=== PATIENT | female | born 1950 | race Caucasian/White ===

== ENCOUNTER → 2016-08-18 | Outpatient (CLI) | payer BC ==
[~2016-08-18] MED LIST: BIOT1CAP8 PO; CALC-354 PO; CHOL100010 PO; COEN100C7 PO; DICY10CA12 PO; FLUT0.15 NAE; GEMF600T PO; GLC/500 PO; LANS30CA12 PO; MELO15TA4 PO; MONT1TAB3 PO; PROB1TAB16 PO; ZNTT/150 PO
--- NOTE | 2016-08-19 12:47 | MAMMOGRAPHY REPORT ---
BILATERAL DIGITAL SCREENING MAMMOGRAM TOMOSYNTHESIS WITH CAD: 08/18/2016 CLINICAL HISTORY: Routine screening. Patient has no complaints. TECHNIQUE: Breast tomosynthesis in addition to standard 2D mammography was performed. Current study was also evaluated with a Computer Aided Detection (CAD) system. COMPARISON: Comparison is made to exams dated: 11/14/2014 mammogram, 07/04/2015 mammogram, 4 mammogram, 04/24/2014 mammogram, and 06/16/2011 mammogram - [facility]. BREAST COMPOSITION: The tissue of both breasts is extremely dense, which lowers the sensitivity of mammography. FINDINGS: There is stable nodularity in the right upper outer quadrant. Scattered benign calcificat ions and round and punctate benign-appearing microcalcifications. No new suspicious mass, implementation architect ural distortion or cluster of microcalcifications is seen. IMPRESSION: ACR BI-RADS CATEGORY 1: NEGATIVE There is no mammographic evidence of malignancy. A 1 year screening mammogram is recommended. The p atient will receive written notification of the results. Approximately 10% of breast cancers are not detected with mammography. A negative mammographic repor t should not delay biopsy if a clinically suggestive mass is present. Kylee Carvalho M.D. ay/:08/18/2016 16:42:33 Asset Coordinator: Modesta Mota, [facility] letter sent: Normal 1/2 BI-RADS Code: ACR BI-RADS Category 1: Negative
== END | disposition home or self-care (01) ==
LOC: C.MAMM 08:23
PROVIDERS: ATTEND Obstetrics & Gynecology
DX: Z12.31 Encounter for screening mammogram for malignant neoplasm of breast (principal)

== ENCOUNTER → 2016-10-21 | Day surgery (SDC) | payer BC ==
[2016-10-13 13:35] VITALS: Ht 162.6 cm; Wt 79.1 kg
[~2016-10-21] VITALS: Ht 162.6 cm; Wt 79.1 kg
[~2016-10-21] MED LIST changes: +LIDOCAINE HCL 2% 2 ML VIAL (20MG/ML) ONE; +ONDANSETRON INJ 2 MG/ML 2 ML VIAL ONE; +PROPOFOL IV EMULSION 10 MG/ML 20 ML VIAL IV ONE; +SODIUM CHLORIDE 0.9% 500ML 500 ML IV ONE
--- NOTE | 2016-10-21 11:19 | Endo History and Physical ---
History & Physical Date of Service: Oct 21, 2016. Chief Complaint: ileum ulcer Referring Physician: Dr. Samir Monahan History of Present Illness 65 yo CF who presents for colonoscopy secondary to ulcer of ileum. Past Surgical History Hx Cardiac Surgery: No Hx Internal Defibrillator: No Hx Pacemaker: No Hx Abdominal Surgery: Yes (MARIS, D&C) Hx of Implantable Prosthesis: No Hx Post-Op Nausea and Vomiting: Yes Hx Cancer Surgery: No Hx Thoracic Surgery: No Hx Orthopedic: No Hx Urinary Tract Surgery: No Family History Colon CA Social History Smoking Status: Never Smoker Hx Substance Use: No Hx Alcohol Use: Yes (OCCASSIONALLY WINE) Allergies Coded Allergies: Penicillins (Verified Allergy, Unknown, HIVES, 10/13/16) Soybean (Verified Allergy, Unknown, HIVES, 10/13/16) Sulfamethoxazole w/Trimethoprim (Verified Allergy, Unknown, HIVES, ) Current Medications Reported Home Medications Medications Dose Route/Sig Max Daily Dose Days Date Category Zantac (Ranitidine HCl) 150 Mg Tab 150 Mg PO QAM 10/13/16 Reported Lopid (Gemfibrozil) 600 Mg Tab 600 Mg PO BID 10/13/16 Reported Caltrate 600+D (Calcium Carbonate-Cholecalcife) 1 Tab Tab 1 Tab PO QAM 04/30/16 Reported Vitamin D (Cholecalciferol) 1,000 Unit Tab 2 Tab PO QAM 04/30/16 Reported Probiotic (Probiotic Product) 1 Tab Tab 1 Tab PO QAM 04/30/16 Reported Coq10 (Coenzyme Q10 (Ubidecarenone)) 100 Mg Cap 1 Cap PO QAM 04/30/16 Reported Flonase Allergy Relief (Fluticasone Propionate (Nasal)) 50 Mcg/Act Spr 2 Inha RAJ QAM 04/30/16 Reported Mobic (Meloxicam) 15 Mg Tab 15 Mg PO QAM 04/30/16 Reported Singulair (Montelukast Sodium) 10 Mg Tab 10 Mg PO HS 04/30/16 Reported Prevacid (Lansoprazole) 30 Mg Capcr 30 Mg PO HS 04/30/16 Reported Dicyclomine Hcl 10 Mg Cap 1 Cap PO BID 04/30/16 Reported Glucophage (Metformin Hcl) 500 Mg Tab 500 Mg PO QAM 04/30/16 Reported Vital Signs Weight (Kilograms): 79.09 Height (Feet): 5 Height (Inches): 4 Date Time Temp Pulse Resp B/P Pulse Ox O2 Delivery O2 Flow Rate FiO2 10/21/16 11:05 37 64 20 138/64 95 Room Air Physical Exam General Appearance: WD/WN, no apparent distress Respiratory/Chest: Auscultation: breath sounds normal Cardiovascular: Heart Auscultation: RRR Abdomen: Bowel Sounds: normal Inspection & Palpation: soft, non-distended, no tenderness, guarding & rebound Assessment and Plan Assessment: 65 yo CF who presents for colonoscopy secondary to ulcer of ileum. Plan: Proceed with colonoscopy.
--- NOTE | 2016-10-21 12:25 | GI REPORT ---
Procedure Date: 10/21/2016 11:52 AM Procedure: Colonoscopy Indications: Ulcer of Ileocecal valve Medicines: Monitored Anesthesia Care Complications: No immediate complications. Estimated Blood Loss: Estimated blood loss: none. Procedure: Pre-Anesthesia Assessment: - Prior to the procedure, a History and Physical was performed, and patient medications and allergies were reviewed. The patient's tolerance of previous anesthesia was also reviewed. The risks and benefits of the procedure and the sedation options and risks were discussed with the patient. All questions were answered, and informed consent was obtained. Prior Anticoagulants: The patient has taken no previous anticoagulant or antiplatelet agents. ASA Grade Assessment: II - A patient with mild systemic disease. After reviewing the risks and benefits, the patient was deemed in satisfactory condition to undergo the procedure. After I obtained informed consent, the scope was passed under direct vision. Throughout the procedure, the patient's blood pressure, pulse, and oxygen saturations were monitored continuously. The scope was introduced through the anus and advanced to the terminal ileum. The colonoscopy was performed without difficulty. The patient tolerated the procedure well. The quality of the bowel preparation was good. The terminal ileum, ileocecal valve, appendiceal orifice, and rectum were photographed. Findings: Discontinuous areas of nonbleeding ulcerated mucosa with no stigmata of recent bleeding were present at the ileocecal valve. Biopsies were taken with a cold forceps for histology. Scattered small-mouthed diverticula were found in the entire colon. Non-bleeding internal hemorrhoids were found during retroflexion. The hemorrhoids were small. Impression: - Mucosal ulceration. Biopsied. - Diverticulosis in the entire examined colon. - Non-bleeding internal hemorrhoids. Recommendation: - Resume previous diet. - Continue present medications. - Repeat colonoscopy for surveillance based on pathology results. - Return to primary care physician as previously scheduled. Laron Painter DO 10/21/2016 12:25:54 PM This report has been signed electronically. Note Initiated On: 10/21/2016 11:52 AM I attest to the content of the Intraoperative Record and orders documented therein, exceptions below
--- NOTE | 2016-10-21 12:26 | Discharge Instructions ---
Endoscopy Patient Instructions Date / Procedure(s) Performed Oct 21, 2016. Colonoscopy Allergy Information Coded Allergies: Penicillins (Verified Allergy, Unknown, HIVES, 10/13/16) Soybean (Verified Allergy, Unknown, HIVES, 10/13/16) Sulfamethoxazole w/Trimethoprim (Verified Allergy, Unknown, HIVES, ) Discharge Date / Findings Oct 21, 2016. Ulcer of Ileocecal valve Diverticulosis Internal hemorrhoids Medication Instructions Stopped Medication(s): stopped Mobic yesterday,no Glucophage and Probiotic Wednesday OK to resume all medications today as prescribed Reported Home Medications Medications Dose Route/Sig Max Daily Dose Days Date Category Zantac (Ranitidine HCl) 150 Mg Tab 150 Mg PO QAM 10/13/16 Reported Lopid (Gemfibrozil) 600 Mg Tab 600 Mg PO BID 10/13/16 Reported Caltrate 600+D (Calcium Carbonate-Cholecalcife) 1 Tab Tab 1 Tab PO QAM 04/30/16 Reported Vitamin D (Cholecalciferol) 1,000 Unit Tab 2 Tab PO QAM 04/30/16 Reported Probiotic (Probiotic Product) 1 Tab Tab 1 Tab PO QAM 04/30/16 Reported Coq10 (Coenzyme Q10 (Ubidecarenone)) 100 Mg Cap 1 Cap PO QAM 04/30/16 Reported Flonase Allergy Relief (Fluticasone Propionate (Nasal)) 50 Mcg/Act Spr 2 Inha RAJ QAM 04/30/16 Reported Mobic (Meloxicam) 15 Mg Tab 15 Mg PO QAM 04/30/16 Reported Singulair (Montelukast Sodium) 10 Mg Tab 10 Mg PO HS 04/30/16 Reported Prevacid (Lansoprazole) 30 Mg Capcr 30 Mg PO HS 04/30/16 Reported Dicyclomine Hcl 10 Mg Cap 1 Cap PO BID 04/30/16 Reported Glucophage (Metformin Hcl) 500 Mg Tab 500 Mg PO QAM 04/30/16 Reported Provider Instructions Activity Restrictions - No exercising or heavy lifting for 24 hours. - Do not drink alcohol the day of the procedure. - Do not drive a car or operate machinery until the day after the procedure. - Do not make any important decisions or sign important papers in 24 hours after the procedure. Following Day: - Return to full activity which may include returning to work/school. Diet Start your diet with liquids and light foods (jello, soup, juice, toast). Then eat your usual diet if not nauseated. Treatment For Common After Affects For mild abdominal pain, bloating, or excessive gas: - Rest - Eat lightly - Lie on right side Follow-Up Information Follow-up with Dr. Samir Monahan as scheduled Anesthesia Information What You Should Know You have had a procedure that required some medicine to reduce anxiety and discomfort. This treatment is called moderate sedation. After receiving the treatment, you may be sleepy, but you will be able to breathe on your own. The effects of the treatment may last for several hours. Follow these instructions along with Activity/Diet recommendations noted above: * Do NOT do anything where dizziness or clumsiness would be dangerous. * Rest quietly at home today, then you can be up and about tomorrow. * Have a responsible person stay with you the rest of today. * You may have had an I.V. today. If so, you may take the dressing off later today. Recommendations Call your doctor if: * Trouble breathing * Continuous vomiting for more than 24 hours * Temperature above 101 degrees * Severe abdominal pain or bloating * Pain not relieved by pain medicine ordered * There is increased drainage or redness from any incision * A large amount of rectal bleeding greater than 2-3 tablespoons. (If you had a polyp/s removed or have hemorrhoids, a small amount of blood - from the rectum is to be expected.) * You have any unanswered questions or concerns. IN THE EVENT OF A SERIOUS EMERGENCY, GO TO THE NEAREST EMERGENCY ROOM Your discharge instructions were prepared by provider Laron Painter. Patient Instructions Signature Page Parris Rosenberg Patient (or Guardian) Signature/Date: I have read and understand the instructions given to me by my caregivers. Caregiver/RN/Doctor Signature/Date: The above-named patient and/or guardian has received patient instructions on this date. + Original Patient Signature Page (only) stays with chart. Please make copy for patient.
[2016-10-21 12:49] VITALS: BP 118/58; PULSE 67; O2SAT 94
--- NOTE | 2016-10-21 12:50 | Anesthesiology Progress Note ---
Anesthesia Post Op Note Date & Time Oct 21, 2016 at 12:50 Vital Signs Pain Intensity: 0 Vital Signs Past 12 Hours Date Time Temp Pulse Resp B/P Pulse Ox O2 Delivery O2 Flow Rate FiO2 10/21/16 12:34 69 18 119/59 94 Room Air 10/21/16 12:19 75 16 97/64 97 Room Air 10/21/16 11:05 37 64 20 138/64 95 Room Air Notes Mental Status: alert / awake / arousable, participated in evaluation Pt Amnestic to Procedure: Yes Nausea / Vomiting: adequately controlled Pain: adequately controlled Airway Patency, RR, SpO2: stable & adequate BP & HR: stable & adequate Hydration State: stable & adequate Anesthetic Complications: no major complications apparent Pt doing well.
== END | disposition home or self-care (01) ==
LOC: C.GI 10:32
PROVIDERS: ATTEND Internal Medicine
DX: K63.3 Ulcer of intestine (principal); K57.30 Diverticulosis of large intestine without perforation or abscess without bleeding; K64.8 Other hemorrhoids; Z80.0 Family history of malignant neoplasm of digestive organs; Z88.0 Allergy status to penicillin; Z88.2 Allergy status to sulfonamides

== ENCOUNTER → 2017-12-07 | Day surgery (SDC) | payer BC ==
[2017-11-30 11:30] VITALS: Ht 162.6 cm; Wt 75.0 kg
[~2017-12-07] VITALS: Ht 162.6 cm; Wt 75.0 kg
[~2017-12-07] MED LIST changes: -BIOT1CAP8 PO; -CALC-354 PO; -CHOL100010 PO; +LISI-789 PO; +MELO-84 PO; -MELO15TA4 PO; +MULTTAB58 PO; -ONDANSETRON INJ 2 MG/ML 2 ML VIAL ONE; +POLY335019 PO; -PROPOFOL IV EMULSION 10 MG/ML 20 ML VIAL IV ONE; +PROPOFOL IV EMULSION 10 MG/ML 20 ML VIAL ONE; +RANI150T85 PO; +TRMCR180 TD; -ZNTT/150 PO
--- NOTE | 2017-12-07 10:12 | Endo History and Physical ---
History & Physical Date of Service: December 07, 2017. Chief Complaint: Referring Physician: History of Present Illness 67 yo presenting for Plasencia's esophagus for EGD surveillance Past Surgical History Hx Cardiac Surgery: No Hx Internal Defibrillator: No Hx Pacemaker: No Hx Abdominal Surgery: Yes (MARIS, D&C) Hx of Implantable Prosthesis: No Hx Post-Op Nausea and Vomiting: Yes (SEVERE NAUSEA/VOMITING) Hx Cancer Surgery: No Hx Thoracic Surgery: No Hx Orthopedic: No Hx Urinary Tract Surgery: No Family History Colon CA, Polyp Social History Smoking Status: Never Smoker Hx Substance Use: No Hx Alcohol Use: Yes (OCCASSIONALLY WINE) Allergies Coded Allergies: Penicillins (Verified Allergy, Unknown, HIVES, 11/30/17) Soybean (Verified Allergy, Unknown, HIVES, 11/30/17) Sulfamethoxazole w/Trimethoprim (Verified Allergy, Unknown, HIVES, 11/30/17 ) Current Medications Reported Home Medications Medications Dose Route/Sig Max Daily Dose Days Date Category Aristocort 0.1% (Triamcinolone Acet) 240 Appln/80 Gm Cr 1 Appln TD BID 11/30/17 Reported Miralax (Polyethylene Glycol 3350) 1 Pow Pow 17 Gm PO DAILY 11/30/17 Reported Multivitamin (Multiple Vitamin) 1 Tab Tab 1 Tab PO DAILY 90 11/30/17 Reported Zestril (Lisinopril) 2.5 Mg Tab 1 Tab PO DAILY 11/30/17 Reported Zantac (Ranitidine HCl) 150 Mg Tab 150 Mg PO QAM 10/13/16 Reported Lopid (Gemfibrozil) 600 Mg Tab 600 Mg PO BID 10/13/16 Reported Probiotic (Probiotic Product) 1 Tab Tab 1 Tab PO QAM 04/30/16 Reported Coq10 (Coenzyme Q10 (Ubidecarenone)) 100 Mg Cap 1 Cap PO QAM 04/30/16 Reported Flonase Allergy Relief (Fluticasone Propionate (Nasal)) 50 Mcg/Act Spr 2 Inha RAJ QAM 04/30/16 Reported Mobic (Meloxicam) 15 Mg Tab 15 Mg PO QAM 04/30/16 Reported Singulair (Montelukast Sodium) 10 Mg Tab 10 Mg PO HS 04/30/16 Reported Prevacid (Lansoprazole) 30 Mg Capcr 30 Mg PO HS 04/30/16 Reported Dicyclomine Hcl 10 Mg Cap 1 Cap PO BID 04/30/16 Reported Glucophage (Metformin Hcl) 500 Mg Tab 500 Mg PO QAM 04/30/16 Reported Vital Signs Weight (Kilograms): 75 Height (Feet): 5 Height (Inches): 4 Physical Exam General Appearance: WD/WN, no apparent distress Respiratory/Chest: Respiratory effort: no dyspnea Auscultation: CTA except as noted Cardiovascular: Apical Impulse: not displaced Heart Auscultation: RRR, normal S2 Abdomen: Bowel Sounds: normal Inspection & Palpation: soft, non-distended Assessment and Plan 67 yo presenting for EGD for Plasencia's f/u
--- NOTE | 2017-12-07 10:46 | GI REPORT ---
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 Medicines: Monitored Anesthesia Care Complications: No immediate complications. Estimated blood loss: None. Estimated Blood Loss: Estimated blood loss: none. Procedure: Pre-Anesthesia Assessment: - Pre-Anesthesia Assessment: - Prior to the procedure, a History and Physical was performed, and patient medications, allergies and sensitivities were reviewed. The patient's tolerance of previous anesthesia was reviewed. Please see [facility] [employer] for complete details. - The risks and benefits of the procedure and the sedation options and risks were discussed with the patient. All questions were answered and informed consent was obtained. - Patient identification and proposed procedure were verified prior to the procedure by the physician and the nurse. The procedure was verified in the pre-procedure area in the procedure room. After obtaining informed consent, the endoscope was passed carefully and meticuously under direct vision and only advanced when the lumen was clearly identified, C02 insuflation was utilized throughout the entirity of the procedure. Throughout the procedure, the patient's blood pressure, pulse, and oxygen saturations were monitored continuously. After obtaining informed consent, the endoscope was passed under direct vision. Throughout the procedure, the patient's blood pressure, pulse, and oxygen saturations were monitored continuously. The scope was introduced through the mouth, and advanced to the second part of duodenum. The upper GI endoscopy was accomplished without difficulty. The patient tolerated the procedure well. Findings: A hiatal hernia was present. The esophagus and gastroesophageal junction were examined with white light and narrow band imaging (NBI) from a forward view and retroflexed position. There were esophageal mucosal changes classified as Plasencia's stage C0-M1 per [place] criteria. These changes involved the mucosa extending to the Z-line. The maximum longitudinal extent of these esophageal mucosal changes was 1 cm in length. Mucosa was biopsied with a cold forceps for histology in a targeted manner and in 4 quadrants at intervals of 1 cm at the gastroesophageal junction. One specimen bottle was sent to pathology. The entire examined stomach was normal. The examined duodenum was normal. Impression: - Hiatal hernia. - Esophageal mucosal changes classified as Plasencia's stage C0-M1 per [place] criteria. Biopsied. - Normal stomach. - Normal examined duodenum. Recommendation: - Await pathology results. - Discharge patient to home (with escort). - Continue present medications. - Repeat upper endoscopy for surveillance based on pathology results. Harsha Mueller MD 12/07/2017 10:46:33 AM This report has been signed electronically. Note Initiated On: 12/07/2017 10:19 AM Number of Addenda: 0 I attest to the content of the Intraoperative Record and orders documented therein, exceptions below {[id number]}
--- NOTE | 2017-12-07 10:47 | Discharge Instructions ---
Endoscopy Patient Instructions Date / Procedure(s) Performed December 07, 2017. EGD Allergy Information Coded Allergies: Penicillins (Verified Allergy, Unknown, HIVES, 11/30/17) Soybean (Verified Allergy, Unknown, HIVES, 11/30/17) Sulfamethoxazole w/Trimethoprim (Verified Allergy, Unknown, HIVES, 11/30/17 ) Discharge Date / Findings December 07, 2017. Very small, non-suspicious area of Plasecnia's esophagus at gastroesophageal junction This area was carefully biopsied Continue present medications you will be contacted with pathology results Provider Instructions Activity Restrictions - No exercising or heavy lifting for 24 hours. - Do not drink alcohol the day of the procedure. - Do not drive a car or operate machinery until the day after the procedure. - Do not make any important decisions or sign important papers in 24 hours after the procedure. Following Day: - Return to full activity which may include returning to work/school. Diet Start your diet with liquids and light foods (jello, soup, juice, toast). Then eat your usual diet if not nauseated. Treatment For Common After Affects For mild abdominal pain, bloating, or excessive gas: - Rest - Eat lightly - Lie on right side Follow-Up Information Follow-up with Samir Monahan as scheduled Anesthesia Information What You Should Know You have had a procedure that required some medicine to reduce anxiety and discomfort. This treatment is called moderate sedation. After receiving the treatment, you may be sleepy, but you will be able to breathe on your own. The effects of the treatment may last for several hours. Follow these instructions along with Activity/Diet recommendations noted above: * Do NOT do anything where dizziness or clumsiness would be dangerous. * Rest quietly at home today, then you can be up and about tomorrow. * Have a responsible person stay with you the rest of today. * You may have had an I.V. today. If so, you may take the dressing off later today. Recommendations Call your doctor if: * Trouble breathing * Continuous vomiting for more than 24 hours * Temperature above 101 degrees * Severe abdominal pain or bloating * Pain not relieved by pain medicine ordered * There is increased drainage or redness from any incision * A large amount of rectal bleeding greater than 2-3 tablespoons. (If you had a polyp/s removed or have hemorrhoids, a small amount of blood - from the rectum is to be expected.) * You have any unanswered questions or concerns. IN THE EVENT OF A SERIOUS EMERGENCY, GO TO THE NEAREST EMERGENCY ROOM Your discharge instructions were prepared by provider Harsha Mueller. Patient Instructions Signature Page Parris Rosenberg Patient (or Guardian) Signature/Date: I have read and understand the instructions given to me by my caregivers. Caregiver/RN/Doctor Signature/Date: The above-named patient and/or guardian has received patient instructions on this date. + Original Patient Signature Page (only) stays with chart. Please make copy for patient.
--- NOTE | 2017-12-07 11:06 | Anesthesiology Progress Note ---
Anesthesia Post Op Note Date & Time December 07, 2017 at 11:06 Vital Signs Pain Intensity: 0 Vital Signs Past 12 Hours Date Time Temp Pulse Resp B/P (MAP) Pulse Ox O2 Delivery O2 Flow Rate FiO2 12/07/17 10:56 62 18 116/52 (73) 96 Room Air 12/07/17 10:41 64 16 104/47 (66) 96 Room Air 12/07/17 09:59 36.8 63 20 143/50 (81) 96 Room Air Notes Mental Status: alert / awake / arousable, participated in evaluation Pt Amnestic to Procedure: Yes Nausea / Vomiting: adequately controlled Pain: adequately controlled Airway Patency, RR, SpO2: stable & adequate BP & HR: stable & adequate Hydration State: stable & adequate Anesthetic Complications: no major complications apparent
[2017-12-07 11:11] VITALS: BP 113/50; PULSE 60; O2SAT 97
== END | disposition home or self-care (01) ==
LOC: C.GI 09:35
PROVIDERS: ATTEND Internal Medicine
DX: K22.70 Barrett's esophagus without dysplasia (principal); K44.9 Diaphragmatic hernia without obstruction or gangrene; E78.5 Hyperlipidemia, unspecified; M19.90 Unspecified osteoarthritis, unspecified site; E11.9 Type 2 diabetes mellitus without complications; Z90.710 Acquired absence of both cervix and uterus; Z80.0 Family history of malignant neoplasm of digestive organs; Z88.0 Allergy status to penicillin; Z88.2 Allergy status to sulfonamides; Z79.899 Other long term (current) drug therapy; Z79.84 Long term (current) use of oral hypoglycemic drugs